=== PATIENT | female | born 1970 | race Caucasian/White ===

== ENCOUNTER 2016-03-26 08:17 | Outpatient (CLI) ==
[2014-05-20 09:14] VITALS: BMI 36.9
[2016-03-26 09:15] LABS: EOSINOPHILS # (AUTO) 0.3 K/ul (0.0-0.7); EOSINOPHILS % (AUTO) 6.3 % (0.0-7.0); HEMOGLOBIN 13.1 g/dl (12.0-16.0); IMMATURE GRANULOCYTE % (AUTO) 0.2 % (0.0-5.0); LYMPHOCYTES # (AUTO) 1.5 K/uL (0.60-3.4); LYMPHOCYTES % (AUTO) 36.7 (10.0-50.0); MEAN CORPUSCULAR HEMOGLOBIN 29.6 pg (27.0-31.0); MEAN CORPUSCULAR HGB CONC 33.6 (31.8-35.4); MEAN CORPUSCULAR VOLUME 88.2 fl (81.0-99.0); MONOCYTES # (AUTO) 0.3 K/uL (0.4-2.0); MONOCYTES % (AUTO) 8.2 (0-10); NEUTROPHILS % (AUTO) 47.6; PLATELET COUNT 239 10^3/uL (140-440); RED BLOOD COUNT 4.42 10^6/ul (4.20-5.40); WHITE BLOOD COUNT 4.14 K/ul (4.6-10.2)
[2016-03-26 10:00] LABS: ALBUMIN 3.6 g/dL (3.4-5.0); ALBUMIN/GLOBULIN RATIO 1.06; ANION GAP 9.8; BILIRUBIN,TOTAL 0.7 mg/dL (0.00-1.20); BUN/CREATININE RATIO 9.37; CALCIUM 9.4 mg/dL (8.2-10.2); CHOL/HDL RATIO 5.9 (4.5-5.5); CREATININE 0.96 mg/dL (0.60-1.30); POTASSIUM 3.8 mmol/L (3.5-5.10)
== END 2016-03-26 08:18 | disposition home or self-care (01) ==
LOC: LAB 08:17
PROVIDERS: ATTEND Nurse Practitioner Family
DX: E55.9 Vitamin D deficiency, unspecified (principal); E66.9 Obesity, unspecified; F41.9 Anxiety disorder, unspecified; R53.83 Other fatigue
CPT/HCPCS: 36415; 80053; 80061; 82306; 84439; 84443; 85025

== ENCOUNTER 2016-04-01 15:43 | Outpatient (CLI) ==
[2014-05-20 09:14] VITALS: BMI 36.9
== END 2016-04-01 15:44 | disposition home or self-care (01) ==
LOC: CAR 15:43
PROVIDERS: ATTEND Nurse Practitioner Family
DX: R53.83 Other fatigue (principal); E66.9 Obesity, unspecified
CPT/HCPCS: 95810

== ENCOUNTER 2016-08-20 11:55 | Outpatient (CLI) ==
[2014-05-20 09:14] VITALS: BMI 36.9
[2016-08-20 13:44] LABS: BASOPHILS % (AUTO) 0.6 % (0.0-3.0); EOSINOPHILS # (AUTO) 0.3 K/ul (0.0-0.7); EOSINOPHILS % (AUTO) 6.2 % (0.0-7.0); HEMATOCRIT 38.1 % (37.0-47.0); HEMOGLOBIN 12.5 g/dl (12.0-16.0); IMMATURE GRANULOCYTE % (AUTO) 0.2 % (0.0-5.0); LYMPHOCYTES # (AUTO) 1.6 K/uL (0.60-3.4); LYMPHOCYTES % (AUTO) 33.4 (10.0-50.0); MEAN CORPUSCULAR HEMOGLOBIN 28.9 pg (27.0-31.0); MEAN CORPUSCULAR HGB CONC 32.8 (31.8-35.4); MEAN CORPUSCULAR VOLUME 88.2 fl (81.0-99.0); MONOCYTES # (AUTO) 0.4 K/uL (0.4-2.0); MONOCYTES % (AUTO) 9.4 (0-10); NEUTROPHILS # (AUTO) 2.4 K/ul (2.0-6.9); NEUTROPHILS % (AUTO) 50.2; PLATELET COUNT 247 10^3/uL (140-440); RED BLOOD COUNT 4.32 10^6/ul (4.20-5.40)
[2016-08-20 13:45] LABS: BILIRUBIN,URINE Negative (NEGATIVE); KETONES,URINE Trace (NEGATIVE); LEUKOCYTE ESTERASE ,URINE Trace (NEGATIVE); NITRITE,URINE Negative (NEGATIVE); PH,URINE 5.5 (5-9); PROTEIN,URINE 2+ (NEGATIVE); URINE, BLOOD 2+ (NEGATIVE)
[2016-08-20 14:13] LABS: ADD URINE MICROSCOPIC YES; BACTERIA,URINE 3+ (NOT PRESENT)
[2016-08-20 14:23] LABS: ALBUMIN 3.5 g/dL (3.4-5.0); ALBUMIN/GLOBULIN RATIO 0.95; ANION GAP 11.9; BILIRUBIN,TOTAL 0.37 mg/dL (0.00-1.20); BUN/CREATININE RATIO 12.94; CALCIUM 9.4 mg/dL (8.2-10.2); CHOL/HDL RATIO 4.9 (4.5-5.5); CREATININE 0.85 mg/dL (0.60-1.30); POTASSIUM 3.9 mmol/L (3.5-5.10); TOTAL PROTEIN 7.2 g/dL (6.4-8.2)
--- NOTE | 2016-08-20 16:58 | DI ---
EXAM: Supine abdominal radiograph. HISTORY: Acute cystitis. Hematuria. COMPARISON: 11/10/2012. FINDINGS: A 1.6 cm calcified structure projects over the region of the left renal silhouette. No o ther calcifications are seen. Bowel gas pattern is nonobstructive. No acute osseous abnormality id entified. IMPRESSION: Large left renal calculus.
== END 2016-08-20 11:56 | disposition home or self-care (01) ==
LOC: LAB 11:55 → RAD 11:56
PROVIDERS: ATTEND Nurse Practitioner Family
DX: F41.9 Anxiety disorder, unspecified (principal); N30.01 Acute cystitis with hematuria; K21.9 Gastro-esophageal reflux disease without esophagitis
CPT/HCPCS: 36415; 80053; 80061; 81001; 84443; 85025; 87086

== ENCOUNTER 2016-08-30 08:06 | Outpatient (CLI) ==
[2014-05-20 09:14] VITALS: BMI 36.9
--- NOTE | 2016-08-30 08:41 | CT ---
EXAM: CT of the abdomen pelvis without contrast History: Calculus of kidney. Flank pain Comparison: Comparison: CT abdomen pelvis 12/30/2010 Technique: Multiplanar CT images through the abdomen pelvis were obtained without the administratio n of IV contrast Findings: The lung bases are clear. No acute osseous abnormalities. Mild to moderate degenerative disc disease at L5-S1. 1.5 cm calculus within the left renal pelvis causing minimal left hydronephrosis. There is mild inf lammation adjacent to the left renal pelvis. Additional 2 mm calculus seen within the inferior pole of the left kidney. No distal left ureteral calculi. No right renal calculi. No discrete gallston es identified by CT. No focal liver or splenic lesions. No peripancreatic inflammation. Adrenal g lands are unremarkable. No bowel obstruction. Colonic diverticulosis. Minimal inflammation seen a djacent to the sigmoid colon within the pelvis. Bladder is not well distended. No free air and no a scites. Impression: 1. Mild acute diverticulitis of the sigmoid colon. 2. Large calculus within the left renal pelvis causing minimal left hydronephrosis.
== END 2016-08-30 08:07 | disposition home or self-care (01) ==
LOC: RAD 08:06
PROVIDERS: ATTEND Nurse Practitioner Family
DX: N20.0 Calculus of kidney (principal)
CPT/HCPCS: 74176

== ENCOUNTER 2016-12-15 00:53 | Emergency (ER) | payer OTHER ==
[2016-12-15 00:57] VITALS: BP 151/84; TEMP 97.2; BMI 36.6
[2016-12-15] MEDS ORDERED: ZOFRAN 4 MG/2 ML IM STA (01:22)
[2016-12-15] MEDS ORDERED: DECADRON 4 MG/ML SDV IM STA (01:22)
[2016-12-15] MEDS ORDERED: ATIVAN IM STA (01:22)
--- NOTE | 2016-12-15 01:25 | ED.PDOC ---
General ED Provider: Dr. KRISTINA STEWART Chief Complaint: Dizziness Stated Complaint: Feeling dizzi for whole day, worse when trying to get up from sitting, also coughing, cold. Time Seen by Physician: 01:23 Mode of Arrival: Walk-In Information Source: Patient, Family Primary Care Provider: LESLI HERNANDEZ Nursing and Triage Documentation Reviewed and Agree: Yes Neurological Complaint Exam - Dizziness Complaint/Exam Onset: Gradual Symptoms Are: Still present Timing: Constant Episodes Lasting: Hours Initial Severity: Moderate Current Severity: Severe Character: Reports: Head spinning, Dizzy Aggravating: Reports: Position change, Supine to erect Alleviating: Reports: None Associated Signs and Symptoms: Reports: Nausea. Denies: Vomiting, Diaphoresis, Tinnitus, Chest pain, Short of air, Palpitations, Unsteady gait, GI blood loss, Visual changes, Decreased oral intake, Change in medication, Change in diet, OTC meds, Loss of balance Related History: Similar episode Cardiac Risk Factors: Reports: None CVA Risk Factors: Reports: None Related Surgical History: Reports: None JVD Present: No Carotid Bruit Present: No Rectal Heme Positive: No Nystagmus Present: No Gag Reflex Present: No Meningeal Signs Positive: No Focal Weakness: Present: None Focal Sensory Loss: Present: None Gait: Normal Romberg Test Positive: No Heel to Toe Normal: Yes [place]-Hallpike Test Positive: No Differential Diagnoses: Labyrinthitis, Meniere's Quality Indicators for Cardiac Chest Pain: EKG in 10min. Review of Systems - Review Of Systems Constitutional: Reports: Malaise, Weakness Eyes: Reports: No symptoms Ears, Nose, Mouth, Throat: Reports: No symptoms Respiratory: Reports: No symptoms Cardiac: Reports: No symptoms GI: Reports: No symptoms : Reports: No symptoms Musculoskeletal: Reports: No symptoms Skin: Reports: No symptoms Neurological: Reports: No symptoms Endocrine: Reports: No symptoms Hematologic/Lymphatic: Reports: No symptoms All Other Systems: Reviewed and Negative Past Medical History - Past Medical History Previously Healthy: Yes Endocrine: Reports: None Cardiovascular: Reports: None Respiratory: Reports: None Hematological: Reports: None Gastrointestinal: Reports: None Genitourinary: Reports: None Neuro/Psych: Reports: None Musculoskeletal: Reports: None Cancer: Reports: None Last Menstrual Period: LAST WEEK - Surgical History General Surgical History: Reports: None - Family History Family History: Reports: None - Social History Smoking Status: Never smoker Hx Substance Use: No Alcohol Screening: None - Immunizations Tetanus Shot up to Date: Yes Physical Exam - Physical Exam Appearance: Ill-appearing, Obese Ill-appearing: Moderate Eyes: EOMI, Conjunctiva clear ENT: Ears normal, Nose normal, Oropharynx normal Respiratory: Airway patent, Breath sounds clear, Breath sounds equal, Respirations nonlabored Cardiovascular: RRR, Pulses normal, No rub, No murmur GI/: Soft, Nontender, No masses, Bowel sounds normal, No Organomegaly Musculoskeletal: Normal strength, ROM intact, No edema, No calf tenderness Skin: Warm, Dry, Normal color Neurological: Sensation intact, Motor intact, Reflexes intact, Cranial nerves intact, Alert, Oriented Psychiatric: Affect appropriate, Mood appropriate Critical Care Note - Critical Care Note Total Time (mins): 30 Course - Course Orders, Labs, Meds: Orders Category Date Time Status CBC W/ AUTO DIFF Stat LAB 12/15/16 01:19 Ordered COMPREHENSIVE METABOLIC PANEL Stat LAB 12/15/16 01:21 Ordered SERUM Stat LAB 12/15/16 Ordered CHEST, 2 VIEWS PA & LAT Stat RADS 12/15/16 01:[address] HEAD W/O CONTRAST Stat RADS 12/15/16 01:21 Ordered Vital Signs: Temp Pulse Resp BP Pulse Ox 12/15/16 00:54 97.2 F L 84 22 151/84 H 98 Departure - Departure Time of Disposition: 03:00 Disposition: HOME SELF-CARE Discharge Problem: Dizziness Instructions: Dizziness (ED) Condition: Good Pt referred to PMD for follow-up: Yes Additional Instructions: Fall risk discussed rest Take medication with food. Prescriptions: Lorazepam [Ativan] 1 mg PO BID #20 tablet Ondansetron [Zofran Odt] 4 mg PO Q8H #20 tab.rapdis Prednisone 10 mg PO BIDWM #14 tablet Allergies/Adverse Reactions: Allergies ciprofloxacin [From Cipro] Adverse Reaction (Verified 02/11/14 21:12) ciprofloxacin HCl [From Cipro] Adverse Reaction (Verified 02/11/14 21:12) sulfamethoxazole [From Bactrim] Adverse Reaction (Verified 02/11/14 21:12) trimethoprim [From Bactrim] Adverse Reaction (Verified 02/11/14 21:12) Home Medications: Ambulatory Orders Vitamin B Complex 1 each PO d 03/24/16 Lorazepam [Ativan] 1 mg PO BID #20 tablet 12/15/16 Ondansetron [Zofran Odt] 4 mg PO Q8H #20 tab.rapdis 12/15/16 Prednisone 10 mg PO BIDWM #14 tablet 12/15/16 Disposition Discussed With: Patient, Family
[2016-12-15 01:32] LABS: BASOPHILS % (AUTO) 0.7 % (0.0-3.0); EOSINOPHILS # (AUTO) 0.3 K/ul (0.0-0.7); EOSINOPHILS % (AUTO) 5.2 % (0.0-7.0); HEMATOCRIT 36.7 % (37.0-47.0); HEMOGLOBIN 12.5 g/dl (12.0-16.0); IMMATURE GRANULOCYTE % (AUTO) 0.4 % (0.0-5.0); LYMPHOCYTES # (AUTO) 1.7 K/uL (0.60-3.4); LYMPHOCYTES % (AUTO) 30.8 (10.0-50.0); MEAN CORPUSCULAR HEMOGLOBIN 29.1 pg (27.0-31.0); MEAN CORPUSCULAR HGB CONC 34.1 (31.8-35.4); MEAN CORPUSCULAR VOLUME 85.3 fl (81.0-99.0); MONOCYTES # (AUTO) 0.5 K/uL (0.4-2.0); MONOCYTES % (AUTO) 9.6 (0-10); NEUTROPHILS # (AUTO) 2.9 K/ul (2.0-6.9); NEUTROPHILS % (AUTO) 53.3; PLATELET COUNT 175 10^3/uL (140-440); WHITE BLOOD COUNT 5.42 K/ul (4.6-10.2)
[2016-12-15 01:50] LABS: SERUM PREGNANCY INTERNAL QC INTERNAL QC VALID
[2016-12-15 01:51] LABS: ALBUMIN 3.3 g/dL (3.4-5.0); ALBUMIN/GLOBULIN RATIO 1.03; ANION GAP 13.5; BILIRUBIN,TOTAL 0.29 mg/dL (0.00-1.20); BUN/CREATININE RATIO 16.27; CALCIUM 8.9 mg/dL (8.2-10.2); CREATININE 0.86 mg/dL (0.60-1.30); POTASSIUM 3.5 mmol/L (3.5-5.10); TOTAL PROTEIN 6.5 g/dL (6.4-8.2)
--- NOTE | 2016-12-15 02:21 | CT ---
EXAM: CT head without contrast 12/15/2016. Sagittal and coronal reformatted images obtained HISTORY: Dizziness COMPARISON: None. FINDINGS: There is no evidence of intracranial hemorrhage. The midline is maintained. There is no h ydrocephalus. Chronic small vessel ischemic changes. No cerebellar tonsillar ectopia. Evaluation o f the calvarium shows no fracture. The mastoid air cells are normally pneumatized. IMPRESSION: No acute intracranial abnormality.
--- NOTE | 2016-12-15 02:33 | DI ---
EXAM: Chest, two views, 12/15/2016 HISTORY: Cough COMPARISON: 02/11/2014 FINDINGS / IMPRESSION: Cardiomediastinal countours appear stable. There is no focal pulmonary conso lidation. No pleural effusion or pneumothorax. No acute cardiopulmonary process.
== END 2016-12-15 02:41 | disposition home or self-care (01) ==
LOC: ED 00:53
DX: R42 Dizziness and giddiness (principal); R05 Cough; R53.1 Weakness
CPT/HCPCS: 36415; 80053; 84703; 85025; 93005; 93010; 96372; 99283

== ENCOUNTER 2017-04-21 08:38 | Emergency (ER) ==
[2017-04-21 08:45] VITALS: BP 147/85; TEMP 97.5; BMI 37.5
--- NOTE | 2017-04-21 11:30 | US ---
EXAM: Ultrasound bilateral carotid duplex. HISTORY: Dizziness. COMPARISON: None available. TECHNIQUE: Multiple nieves scale and color Doppler images were obtained. FINDINGS: Please note that estimates of internal carotid artery stenoses are based upon NASCET crite sigrid. Right carotid: No significant plaquing identified. Peak systolic velocity measurement in the right internal carotid artery is 1.3 meters per second. Right internal to common carotid artery peak systo lic velocity ratio measures 1.4. End diastolic velocity measurement in the right internal carotid ar alden is 0.3 meters per second. Flow in the right vertebral artery is antegrade. Left carotid: No significant plaquing identified. Peak systolic velocity measurement in the left in ternal carotid artery is 0.9 meters per second. Left internal to common carotid artery peak systolic velocity ratio measures 1.2. End diastolic velocity measurement in the left internal carotid artery measures 0.3 meters per second. Flow in the left vertebral artery is antegrade. IMPRESSION: 1. No 50% or greater stenosis in the right or left internal carotid artery. 2. Antegrade flow in both vertebral arteries.
--- NOTE | 2017-04-21 12:05 | ED.PDOC ---
General ED Provider: Dr. ANGELITO FISCHER Chief Complaint: Headache Stated Complaint: dizziness, headache Time Seen by Physician: 08:45 Mode of Arrival: Walk-In Information Source: Patient Exam Limitations: No limitations Primary Care Provider: LESLI HERNANDEZ Nursing and Triage Documentation Reviewed and Agree: Yes Reviewed sepsis parameters & appropriate labs ordered?: Yes System Inflammatory Response Syndrome: Not Applicable Sepsis Protocol: For patient's 13 years and over: Temp is 96.8 and below OR 101 and greater Pulse >90 BPM Resp >20/minute Acutely Altered Mental Status Are patient's symptoms suggestive of a new infection, such as: -Pneumonia -Skin, Soft Tissue -Endocarditis -UTI -Bone, Joint Infection -Implantable Device -Acute Abdominal Infection -Wound Infection -Meningitis -Blood Stream Catheter Infection -Unknown System Inflammatory Response Syndrome: Not Applicable Neurological Complaint Exam - Headache Complaint/Exam Onset: Gradual Duration: chronic worse during last few days Symptoms Are: Still present Timing: Intermittent Episodes Lasting: Hours Worst Headache Ever: No Initial Severity: Moderate Current Severity: Moderate Location: Frontal, Temporal Character: Reports: Dull Aggravating: Reports: None Alleviating: Reports: None Associated Signs and Symptoms: Reports: Dizziness. Denies: Seizure, Nausea, Vomiting, Sinus pressure, Fever, Neck pain, Neck stiffness, Decreased LOC, Visual changes Related History: Reports: Similar episode Related Surgical History: Reports: None SAH Risk Factors: Reports: None Meningitis Risk Factors: Reports: None SDH Risk Factors: Reports: None Temporal Arteritis Risk Factors: Reports: Female Normal Head CT Within Last 12 Months: No Fundoscopic Exam: Present: Normal Findings Papilledema Present: No Temporal Artery Tenderness: Present: None Sinus Tenderness: Present: None TMJ Tenderness: Present: None Glascow Coma Scale (see protocol): 15 Meningeal Signs Positive: No Pain on Passive Flexion-Positive Kernig's: No ROM Limited In: No Limitiations Focal Weakness: Present: None Focal Sensory Loss: Present: None Gait: Normal Nystagmus Present: No Gag Reflex Present: No Differential Diagnoses: Migraine Review of Systems - Review Of Systems Constitutional: Reports: No symptoms Eyes: Reports: No symptoms Ears, Nose, Mouth, Throat: Reports: No symptoms Respiratory: Reports: No symptoms Cardiac: Reports: No symptoms GI: Reports: No symptoms : Reports: No symptoms Musculoskeletal: Reports: No symptoms Skin: Reports: No symptoms Neurological: Reports: Headache, Other (postional vertigo) Endocrine: Reports: No symptoms Hematologic/Lymphatic: Reports: No symptoms All Other Systems: Reviewed and Negative Past Medical History - Past Medical History Previously Healthy: Yes Endocrine: Reports: None Cardiovascular: Reports: None Respiratory: Reports: None Hematological: Reports: None Gastrointestinal: Reports: None Genitourinary: Reports: None Neuro/Psych: Reports: None Musculoskeletal: Reports: None Cancer: Reports: None Last Menstrual Period: now - Surgical History General Surgical History: Reports: None - Family History Family History: Reports: None - Social History Smoking Status: Never smoker Hx Substance Use: No Alcohol Screening: None Physical Exam - Physical Exam Appearance: Well-appearing, No pain distress, Well-nourished Eyes: SHANITA, EOMI, Conjunctiva clear ENT: Ears normal, Nose normal, Oropharynx normal Respiratory: Airway patent, Breath sounds clear, Breath sounds equal, Respirations nonlabored Cardiovascular: RRR, Pulses normal, No rub, No murmur GI/: Soft, Nontender, No masses, Bowel sounds normal, No Organomegaly Musculoskeletal: Normal strength, ROM intact, No edema, No calf tenderness Skin: Warm, Dry, Normal color Neurological: Sensation intact, Motor intact, Reflexes intact, Cranial nerves intact, Alert, Oriented Psychiatric: Affect appropriate, Mood appropriate Interpretation - Radiology Interpretation Radiology Interpretation By: Radiologist Radiology Results: No acute changes - 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 Rate: Normal Rhythm: Sinus - EKG Interpretation Rate: Normal Rhythm: Sinus Critical Care Note - Critical Care Note Total Time (mins): 0 Course - Course Hematology/Chemistry: 04/21/17 09:20 04/21/17 09:20 Orders, Labs, Meds: Lab Review 04/21/17 04/21/17 09:20 09:20 WBC 5.93 RBC 4.30 Hgb 12.8 Hct 36.9 L MCV 85.8 MCH 29.8 MCHC 34.7 RDW Coeff of Christian 12.6 Plt Count 208 Immature Gran % (Auto) 0.2 Neut % (Auto) 65.8 Lymph % (Auto) 21.4 Gaston % (Auto) 7.9 Eos % (Auto) 3.9 Baso % (Auto) 0.8 Immature Gran # (Auto) 0.0 Neut # (Auto) 3.9 Lymph # (Auto) 1.3 Gaston # (Auto) 0.5 Eos # (Auto) 0.2 Baso # (Auto) 0.1 Sodium 138 Potassium 4.1 Chloride 106 Carbon Dioxide 23 Anion Gap 13.1 BUN 10 Creatinine 0.82 Estimated GFR (MDRD) 76.00 BUN/Creatinine Ratio 12.19 Glucose 112 H Calcium 8.8 Total Bilirubin 0.4 AST 14 L ALT 14 Alkaline Phosphatase 77 Total Protein 6.9 Albumin 3.3 L Globulin 3.6 Albumin/Globulin Ratio 0.92 Orders Category Date Time Status EKG-(ED ONLY) Stat CARDIO 04/21/17 09:36 Completed NPO REMINDER: IMAGING ONCE CARE 04/21/17 09:34 Completed ED IV/MEDIPORT/POWERPORT .ONCE EMERGENCY 04/21/17 09:36 Active CBC W/ AUTO DIFF Stat LAB 04/21/17 09:20 Completed COMPREHENSIVE METABOLIC PANEL Stat LAB 04/21/17 09:20 Completed 0.9 % Sodium Chloride [Saline Flush] MEDS 04/21/17 09:36 Active 1 syr IVF PRN PRN CTA ANGIO HEAD Stat RADS 04/21/17 09:34 Taken ULTRASOUND DOPPLER CAROTID [U/S DOPPLER CAROTID] Stat RADS 04/21/17 09:35 Completed Medications Generic Name Dose Route Start Last Admin Trade Name Freq PRN Reason Stop Dose Admin Sodium Chloride 1 syr 04/21/17 09:36 Saline Flush IVF PRN PRN To flush IV Vital Signs: Temp Pulse Resp BP Pulse Ox 04/21/17 08:39 97.5 F L 79 16 147/85 H 98 Departure - Departure Time of Disposition: 13:00 Disposition: HOME SELF-CARE Discharge Problem: Headache, Dizzinesses Instructions: Vertigo (ED), Vertigo (DC), Dizziness (ED), Lightheadedness (ED) , Acute Headache (ED) Condition: Good Pt referred to PMD for follow-up: Yes IPMP verified?: No Additional Instructions: Please call your Family Physician as soon as possible to schedule a follow-up appointment. Prescriptions: Amoxicillin 500 mg PO Q8HR #21 tablet Allergies/Adverse Reactions: Allergies ciprofloxacin [From Cipro] Adverse Reaction (Verified 04/21/17 08:45) ciprofloxacin HCl [From Cipro] Adverse Reaction (Verified 04/21/17 08:45) sulfamethoxazole [From Bactrim] Adverse Reaction (Verified 04/21/17 08:45) trimethoprim [From Bactrim] Adverse Reaction (Verified 04/21/17 08:45) Home Medications: Ambulatory Orders Cholecalciferol (Vitamin D3) [Vitamin D3] 50,000 unit PO WEEKLY 03/10/17 Gypsy-3 Fatty Acids/Fish Oil [Fish Oil 1,000 Mg Capsule] 1 each PO DAILY Amoxicillin 500 mg PO Q8HR #21 tablet 04/21/17 Disposition Discussed With: Patient
--- NOTE | 2017-04-21 12:06 | CT ---
EXAM: CT angiogram of the [place] with contrast TECHNIQUE: Helical axial CT angiogram of the [place] was performed with contrast with coron al and sagittal and multiplanar reconstructions as well as separate work station 3-D renderings. COMPARISON: CT head from 12/15/2016 HISTORY: Headache and dizziness FINDINGS: Right internal carotid artery distribution: The right internal carotid artery, middle cerebral artery including the M1, M2, A1, A2 and runoff branches are widely patent. Left internal carotid artery distribution: The left internal carotid artery, middle cerebral artery i ncluding the M1, M2, A1, A2 and runoff branches are widely patent. Anterior communicating artery: Patent Posterior communicating arteries: Patent bilaterally Vertebral basilar system: The V4 segments of the vertebral arteries and the basilar artery and its br anches are widely patent. The vertebral arteries are codominant. The visualized portions of the cervical vascular anatomy appear unremarkable. The bilateral carotid bifurcations are widely patent. There are no aneurysms or vascular malformations. The dural sinuses are widely patent. CT head was performed without contrast as part of the examination. There is no acute intracranial abnormality. There is no hemorrhage or mass or subdural or hydrocepha jalen. There is no prior or evolving cortical ischemia. Brain parenchyma ventricles and sulci are othe rwise normal. The bilateral orbits are unremarkable. There is no significant mastoid air cell fluid.T he paranasal sinuses demonstrate trace membrane thickening but no air-fluid levels. There are no acu te calvarial abnormalities. IMPRESSION: Normal [place] CT angiogram.
== END 2017-04-21 12:15 | disposition home or self-care (01) ==
LOC: ED 08:38
DX: R51 Headache (principal); R42 Dizziness and giddiness
CPT/HCPCS: 36415; 80053; 85025; 93005; 93010; 99284

== ENCOUNTER 2017-04-25 07:59 | Outpatient (CLI) ==
--- NOTE | 2017-04-25 08:47 | DI ---
EXAM: Eight views of the cervical spine including flexion and extension HISTORY: Neck pain. COMPARISON: None FINDINGS: There is no acute compression fracture or subluxation. There is a normal appearing facets and posterior processes. There is minimal straightening. The odontoid process is unremarkable. The facets are normal with patent neural foramen. There is no change in alignment during flexion or ext ension. IMPRESSION: No acute abnormality or compression fracture of the cervical spine with no change in alignment durin g flexion or extension. Mild straightening of the cervical spine is present and may represent positioning versus muscle spasm .
== END 2017-04-25 08:00 | disposition home or self-care (01) ==
LOC: RAD 07:59
PROVIDERS: ATTEND Nurse Practitioner Family
DX: M54.2 Cervicalgia (principal)

== ENCOUNTER 2017-05-16 12:13 | Outpatient (CLI) | END 2017-05-16 12:14 | disposition home or self-care (01) | LOC: FCC-LAB 12:13 | PROVIDERS: ATTEND Nurse Practitioner Family | DX: R53.83 Other fatigue (principal); R63.5 Abnormal weight gain | CPT/HCPCS: 36415; 82306; 84439; 84443 ==

== ENCOUNTER 2017-06-19 05:53 | Observation (INO) | payer MEDICAID, OTHER ==
--- NOTE | 2017-06-19 06:45 | ED.PDOC ---
General Stated Complaint: Patient is a 46 year old female who comse to the ER with increased frequency voiding of small amounts. Has chronic Pelvic pain/lower back not any different today but increased suprapubic pain and Low grade fever and chills. Has a history of Diverticulitis. Time Seen by Physician: 06:30 Mode of Arrival: Walk-In Information Source: Patient Exam Limitations: No limitations Nursing and Triage Documentation Reviewed and Agree: Yes Reviewed sepsis parameters & appropriate labs ordered?: No System Inflammatory Response Syndrome: Not Applicable System Inflammatory Response Syndrome: Not Applicable <SAY KENNY - Last Filed: 06/19/17 06:49> <GIGI GAXIOLA - Last Filed: 06/19/17 07:34> ED Provider: Dr. GIGI PAUL-LARRY Chief Complaint: Abdominal Pain Primary Care Provider: LESLI HERNANDEZ Sepsis Protocol: For patient's 13 years and over: Temp is 96.8 and below OR 101 and greater Pulse >90 BPM Resp >20/minute Acutely Altered Mental Status Are patient's symptoms suggestive of a new infection, such as: -Pneumonia -Skin, Soft Tissue -Endocarditis -UTI -Bone, Joint Infection -Implantable Device -Acute Abdominal Infection -Wound Infection -Meningitis -Blood Stream Catheter Infection -Unknown Complaint Exam - Complaint/Exam Patient Complains of: Reports: Dysuria Onset/Duration: 1 day Symptoms Are: Still present Timing: Constant Initial Severity: Moderate Current Severity: Moderate Location of Pain: Reports: Suprapubic Character: Reports: Dull Aggravating: Reports: Urination Associated Signs and Symptoms: Reports: Back pain, Fever Ovarian Torsion Risk Factors: Reports: None Abdominal Findings: Absent: Pulsatile mass, Abdominal distention, Unequal femoral pulses, Rebound tenderness (but suprapubic tenderness to palpation.) Differential Diagnoses: Ovarian Cyst, Ureteral Stone, UTI, Other ( Diverticulitis ) <SAY KENNY - Last Filed: 06/19/17 06:49> Review of Systems - Review Of Systems Constitutional: Reports: Chills, Fever Respiratory: Reports: No symptoms Cardiac: Reports: No symptoms GI: Reports: Abdominal pain, Nausea, Poor appetite Musculoskeletal: Reports: Back pain (chronic) Skin: Reports: No symptoms Neurological: Reports: Anxiety Hematologic/Lymphatic: Reports: No symptoms All Other Systems: Reviewed and Negative <SAY KENNY Last Filed: 06/19/17 06:49> Past Medical History - Past Medical History Previously Healthy: Yes Endocrine: Reports: None Cardiovascular: Reports: None Respiratory: Reports: None Hematological: Reports: None Gastrointestinal: Reports: Diverticulitis Genitourinary: Reports: Kidney stones Neuro/Psych: Reports: Anxiety Musculoskeletal: Reports: None Cancer: Reports: None Last Menstrual Period: last week Other Pertinent Past Medical History: HPV,Dizziness. - Surgical History General Surgical History: Reports: Other (LEAP, Ureteral Lithotripsy.) - Family History Family History: Reports: None - Social History Smoking Status: Never smoker Hx Substance Use: No Alcohol Screening: None - Immunizations Tetanus Shot up to Date: Yes <SAY KENNY Last Filed: 06/19/17 06:49> Physical Exam - Physical Exam Appearance: Ill-appearing, Obese Ill-appearing: Moderate Pain Distress: Moderate Neck: Supple Respiratory: Airway patent, Breath sounds clear, Breath sounds equal, Respirations nonlabored Cardiovascular: RRR, Pulses normal, No rub, No murmur GI/: Soft, Bowel sounds normal, No Organomegaly, Tender (Suprapubic area ) Musculoskeletal: Normal strength, ROM intact, No edema, No calf tenderness Skin: Warm, Dry Neurological: Sensation intact, Motor intact, Reflexes intact, Cranial nerves intact, Alert, Oriented Psychiatric: Anxious <SAY KENNY Last Filed: 06/19/17 06:49> Interpretation - Radiology Interpretation Radiology Interpretation By: Radiologist Radiology Results: Positive Exam Interpreted: CT Scan <GIGI GAXIOLA - Last Filed: 06/19/17 07:34> Physician Notification - Case Discussed Endorsed To/Discussed With: Dr Paul Time of Discussion: 07:00 <SAY KENNY Last Filed: 06/19/17 06:49> - Case Discussed Physician Notified: dr [email or web address] Time of Notification: 07:33 <GIGI GAXIOLA - Last Filed: 06/19/17 07:34> Critical Care Note - Critical Care Note Total Time (mins): 0 <SAY KENNY - Last Filed: 06/19/17 06:49> Course - Course Hematology/Chemistry: 06/19/17 06:50 06/19/17 06:50 <GIGI GAXIOLA - Last Filed: 06/19/17 07:34> - Course Orders, Labs, Meds: Lab Review 06/19/17 06/19/17 06/19/17 06:10 06:50 06:50 WBC 9.17 RBC 4.18 L Hgb 12.3 Hct 36.1 L MCV 86.4 MCH 29.4 MCHC 34.1 RDW Coeff of Christian 13.0 Plt Count 218 Immature Gran % (Auto) 0.2 Neut % (Auto) 72.4 Lymph % (Auto) 15.7 [place] % (Auto) 9.8 Eos % (Auto) 1.5 Baso % (Auto) 0.4 Immature Gran # (Auto) 0.0 Neut # (Auto) 6.6 Lymph # (Auto) 1.4 [place] # (Auto) 0.9 Eos # (Auto) 0.1 Baso # (Auto) 0.0 Sodium 137 Potassium 3.8 Chloride 104 Carbon Dioxide 23 Anion Gap 13.8 BUN 10 Creatinine 0.88 Estimated GFR (MDRD) 70.00 BUN/Creatinine Ratio 11.36 Glucose 124 H Calcium 9.2 Total Bilirubin 0.9 AST 16 ALT 16 Alkaline Phosphatase 70 Total Protein 7.0 Albumin 3.3 L Globulin 3.7 Albumin/Globulin Ratio 0.89 Amylase 63 Lipase 26 Urine Color Yellow Urine Clarity Clear Urine pH 6.0 Ur Specific [place] 1.015 Urine Protein Negative Urine Glucose (UA) Negative Urine Ketones Negative Urine Blood 1+ Urine Nitrite Negative Urine Bilirubin Negative Urine Urobilinogen 0.2 Ur Leukocyte Esterase Negative Urine Microscopic RBC 2-5 Urine Microscopic WBC 2-5 Ur Squamous Epith Cells 10-20 Urine Bacteria 1+ Orders Category Date Time Status NPO REMINDER: IMAGING ONCE CARE 06/19/17 06:47 Completed AMYLASE Stat LAB 06/19/17 06:50 Completed CBC W/ AUTO DIFF Stat LAB 06/19/17 06:50 Completed COMPREHENSIVE METABOLIC PANEL Stat LAB 06/19/17 06:50 Completed LIPASE Stat LAB 06/19/17 06:50 Completed UA [URINALYSIS C & S IF INDICATED] Stat LAB 06/19/17 06:10 Completed URINE CULTURE Stat LAB 06/19/17 06:[address] ABD/PEL WO RENAL STONE PROT Stat RADS 06/19/17 06:53 Completed Vital Signs: Temp Pulse Resp BP Pulse Ox 06/19/17 05:54 98.8 F 88 22 129/84 97 Departure <SAY KENNY - Last Filed: 06/19/17 06:49> - Departure Time of Disposition: 07:33 Pt referred to PMD for follow-up: Yes IPMP verified?: No Disposition Discussed With: Patient <GIGI GAXIOLA - Last Filed: 06/19/17 07:34> - Departure Disposition: ADMITTED INPATIENT Discharge Problem: Diverticulitis Condition: Good Allergies/Adverse Reactions: Allergies ciprofloxacin [From Cipro] Adverse Reaction (Verified 06/19/17 06:05) ciprofloxacin HCl [From Cipro] Adverse Reaction (Verified 06/19/17 06:05) sulfamethoxazole [From Bactrim] Adverse Reaction (Verified 06/19/17 06:05) trimethoprim [From Bactrim] Adverse Reaction (Verified 06/19/17 06:05) Home Medications: Ambulatory Orders Cholecalciferol (Vitamin D3) [Vitamin D3] 50,000 unit PO WEEKLY 03/10/17 [place]-3 Fatty Acids/Fish Oil [Fish Oil 1,000 Mg Capsule] 1 each PO DAILY
--- NOTE | 2017-06-19 07:18 | CT ---
EXAM: CT of the abdomen pelvis without contrast History: Suprapubic abdominal pain. Comparison: CT abdomen pelvis 08/30/2016 Technique: Multiplanar CT images through the abdomen pelvis were obtained without the administration of IV contrast Findings: Lung bases are free of consolidation. No acute osseous abnormalities. Moderate degenerat barney disc disease at L5-S1. No discrete gallstones identified by CT. No focal liver or splenic lesions. No peripancreatic infla mmation. Adrenal glands are unremarkable. Left renal calculi with the largest measuring 4 mm. No u reteral stones and no hydronephrosis. No bowel obstruction. Colonic diverticulosis. Wall thickenin g and surrounding inflammation of the sigmoid colon within the pelvis. No abscess. No bladder wall thickening. No free intraperitoneal air. Adnexal structures appear appropriate for patient's age. Impression: 1. Acute uncomplicated diverticulitis of the sigmoid colon. There is no abscess. 2. Nonobstructing left nephrolithiasis
[2017-06-19] MEDS ORDERED: MORPHINE 4 MG/ML SYRINGE IVP PRN (07:38)
[2017-06-19] MEDS ORDERED: ZOFRAN 4 MG/2 ML IVP PRN (07:38)
[2017-06-19 09:22] VITALS: BMI 38.2
[2017-06-19] MEDS: FLAGYL 500 MG/100 ML 500 MG in PREMIX 100 ML NS 1 BAG IV SCH ×3 (09:23→20:24)
[2017-06-19] MEDS: D5%-NS-KCL 20 MEQ/L IV SOL 1,000 ML IV SCH ×2 (09:23→21:26)
[2017-06-19] MEDS ORDERED: TYLENOL PO STA (09:33)
[2017-06-19] MEDS ORDERED: TYLENOL ONE (09:35)
[2017-06-19] MEDS: ZOSYN 3.375 GM 3.375 GM in SODIUM CHLORIDE 50 ML IV SCH ×3 (12:29→23:26)
[2017-06-19] MEDS ORDERED: TYLENOL PO PRN (17:06)
[2017-06-20] MEDS: FLAGYL 500 MG/100 ML 500 MG in PREMIX 100 ML NS 1 BAG IV SCH ×3 (04:16→20:08)
[2017-06-20] MEDS: ZOSYN 3.375 GM 3.375 GM in SODIUM CHLORIDE 50 ML IV SCH ×4 (05:58→23:27)
[2017-06-20] MEDS: D5%-NS-KCL 20 MEQ/L IV SOL 1,000 ML IV SCH ×3 (07:29→21:52)
[2017-06-21] MEDS: FLAGYL 500 MG/100 ML 500 MG in PREMIX 100 ML NS 1 BAG IV SCH (05:15)
[2017-06-21 06:26] VITALS: BP 138/83; TEMP 98.3
[2017-06-21] MEDS: ZOSYN 3.375 GM 3.375 GM in SODIUM CHLORIDE 50 ML IV SCH (06:28)
[2017-06-21] MEDS: D5%-NS-KCL 20 MEQ/L IV SOL 1,000 ML IV SCH ×2 (08:48→10:36)
--- NOTE | 2017-06-21 14:43 | PN ---
DATE OF SERVICE: 06/20/17 SUBJECTIVE: The patient was admitted with the sigmoid diverticulitis and passing gas. Up and about walking. Able to tolerate the clear liquid diet. Still has some sharp abdominal pain but no lower back pain. Lower back pain been resolved. REVIEW OF SYSTEMS: CONSTITUTIONAL: No fever, no chills. HEENT: Normal. ENDOCRINE: No weight gain, no weight loss. CVS: No angina symptoms. No CHF symptoms. No palpitations. No atypical chest pain for CAD. No shortness of breath. No PND, no orthopnea. RESPIRATORY: No cough, no hemoptysis. GI: No nausea, no vomiting. No abdominal pain. : No hematuria. No polyuria. MUSCULOSKELETAL: No joint swelling. PSYCHIATRIC: Not anxious. No depression. No suicidal thoughts. No homicidal thoughts. SKIN: Intact. No rash. PHYSICAL EXAMINATION: V/S: Blood pressure 119/76, respiratory rate 20, heart rate 76, temperature 98.6. HEENT: Normocephalic, atraumatic. Mucosa dry. NECK: Supple. No JVD, no carotid bruit. No lymphadenopathy. LUNGS: Clear to auscultation. No rales or rhonchi. HEART: S1, S2 normal. No S3. No murmur, gallop or regurgitation. ABDOMEN: Suprapubic discomfort present. Bowel sounds hyperactive. No rigidity. No rebound or guarding. No CVA tenderness. EXTREMITIES: No pedal edema. No clubbing or cyanosis MUSCULOSKELETAL: No joint swelling. NEUROLOGIC: Awake, alert, oriented times three. No focal deficit. LYMPHATIC: No lymph nodes palpable. SKIN: Intact. LABS: Sodium 139, potassium 3.8, chloride 109, bicarb 22, BUN 6, creatinine 0.80, glucose 136, WBC 6.40, hgb 11.4, hct 33.3 and plt count 203. ASSESSMENT: 1. Sigmoid diverticulitis 2. Hyperglycemia 3. Anxiety 4. Depression PLAN: 1. Continue Flagyl 2. Zosyn 3. Demerol 4. Soft diet Will follow the patient in daily rounds. TIME SPENT: More than 35 minutes MTDD
--- NOTE | 2017-06-28 13:25 | HP ---
DATE OF SERVICE: 06/19/17 CHIEF COMPLAINT: Abdominal wall pain, lower belly pain. HISTORY OF PRESENT ILLNESS: This is a 46 year old female who has been having lower abdominal pain, nausea, voiding frequently-small amounts, pelvic pain, lower back pain, low grade fever at home and chills. No nausea, vomiting or diarrhea now. She came to see Dr. Arellano in the emergency room initially and then Dr. Pham. Urine showed blood positive and bacteria positive. Nitrites negative. CT of the abdomen and pelvis showed the sigmoid diverticulitis without any complications. At that time the patient is admitted to the hospital for the IV antibiotics and bowel rest and IV fluids. REVIEW OF SYSTEMS: CONSTITUTIONAL: No fever, no chills. HEENT: Normal. Also headache right now as the patient has not been eating, so she is having headache. ENDOCRINE: No weight gain; no weight loss. CVS: No chest pain. No PND, no orthopnea. No shortness of breath. No PND, no orthopnea. RESPIRATORY: No cough, no congestion. No hemoptysis. GI: Some nausea, no vomiting. Lower abdominal pain. No melena. : Frequency of urination. Urgency of urination. Small scanty urine. MUSCULOSKELETAL: No joint swelling. PSYCHIATRIC: Not anxious. No depression. No suicidal thoughts. No homicidal thoughts. SKIN: Intact, no open lesions. PAST MEDICAL HISTORY: History of pneumonia GERD History of kidney stones Osteoarthritis Anxiety PAST SURGICAL HISTORY: LEAP procedure PERSONAL HISTORY: Does not smoke or drink. FAMILY HISTORY:Significant for diabetes and heart problems. MEDICATIONS: Zantac, Xanax, Fish oil, Cyclobenzaprine and Phenergan. ALLERGIES: Ciprofloxacin, Bactrim PHYSICAL EXAMINATION: V/S: Blood pressure 129/84, respiratory rate 22, heart rate 88, temperature 98.0 , saturation 97. HEENT: Atraumatic, normocephalic. No scleral icterus. Pallor positive. Mucosa dry. NECK: Supple. No JVD, no bruit. No lymphadenopathy. No thyromegaly. HEART: S1, S2 normal. No murmur. No cyanosis or clubbing. No ascites. LUNGS: Decreased and clear. No rales or rhonchi. ABDOMEN: Suprapubic discomfort. Bowel sounds are active. No CVA tenderness. No rigidity or guarding. EXTREMITIES: No pedal edema. No cyanosis or clubbing MUSCULOSKELETAL: Normal joints, no swelling. NEUROLOGIC: Normal. SKIN: Intact; no open lesions. LYMPHATIC: No lymph nodes palpable. LABS: White count 9.17, hemoglobin 12.3, hematocrit 36.0, platelet count 218, sodium 137, potassium 3.8, chloride 104, bicarb 23, BUN 10, creatinine 0.82, glucose 124. ASSESSMENT: 1. SIGMOID DIVERTICULITIS 2. HISTORY OF ANXIETY 3. GERD 4. HYPERGLYCEMIA PLAN: 1. Admit the patient to the regular floor. 2. CBC, CMP today and daily. 3. Clear liquid diet. 4. NPO for now. 5. Flagyl every 8 hours. 6. Zosyn every 6 hours. 7. Zofran. 8. Morphine 2 mg every 12 hours prn for the abdominal pain. 9. Tylenol prn. TIME SPENT: MORE THAN 75 minutes for the admission. MTDD
--- NOTE | 2017-08-18 11:31 | DS ---
DATE OF SERVICE: 06/21/17 FINAL DIAGNOSIS: 1. ACUTE DIVERTICULITIS, SIGMOID 2. ANXIETY 3. DJD, L5-S1 4. LEFT NEPHROLITHIASIS, NONOBSTRUCTING 5. LEEP PROCEDURE DISCHARGE INSTRUCTIONS: 1. Discharge the patient home. 2. Diverticular diet discussed with the patient, no seeds, no nuts. 3. Increase hydration. 4. Followup in the office within 5 to 7 days. 5. Appointment with GI doctor, Dr. Arredondo on 07/08/17. 6. Please start taking yogurt as the patient will be getting IV antibiotics. 7. Continue oral antibiotics. MEDICATIONS AT DISCHARGE: Xanax Flexeril Zantac Carafate [place] 3 NEW PRESCRIPTIONS: Augmentin 500 mg q.8hr DIET INSTRUCTIONS: Soft diet until she is seen in the office. ACTIVITY: Resume as tolerated DISEASE SPECIFIC EDUCATION: Diverticulitis, risk of abscess discussed, verbalized understanding. 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 She has been having menstrual cramps, came to the emergency room and was seen by the ER physician. White count is normal. Urine showed 1+ blood, nitrites negative. CT of abdomen and pelvis showed acute sigmoid diverticulitis. At that time, the patient was admitted to the hospital, started on IV antibiotics, Flagyl and Zosyn. IV fluids were given. Tylenol for pain. Zofran was given. Morphine for pain was given. Labs have been steady. Hemoglobin slightly dropped from 12.3 to 11.9. BUN and creatinine were normal. Within one to two days, the patient was up and about, pain better. She started passing gas, started on clear liquids and soft diet, tolerated well, did not have any problem. At that time, the patient was discharged home. TIME SPENT: MORE THAN 65 MINUTES MTDD
== END 2017-06-21 10:35 | disposition home or self-care (01) ==
LOC: ED 05:53 → MEDSURG A 07:41 → INTOOBSV 07:41
PROVIDERS: ADMIT Emergency Medicine; ATTEND Emergency Medicine
DX: R11.0 Nausea (principal); K57.30 Diverticulosis of large intestine without perforation or abscess without bleeding; K21.9 Gastro-esophageal reflux disease without esophagitis; N20.0 Calculus of kidney; R73.9 Hyperglycemia, unspecified; F41.8 Other specified anxiety disorders
CPT/HCPCS: 36415; 74176; 80053; 81001; 82150; 83690; 85025; 87086; 96361; 96365; 96366; 96367; 99223; 99233; 99239; 99284

== ENCOUNTER 2017-07-08 22:55 | Inpatient (IN) | payer MEDICAID, OTHER ==
[2017-07-08 23:05] VITALS: BMI 38.7
--- NOTE | 2017-07-09 01:08 | CT ---
EXAM: CT of the abdomen and pelvis without contrast. HISTORY: Left lower quadrant abdominal pain. PROCEDURE: Contiguous axial CT images of the abdomen and pelvis without contrast with coronal and sa gittal reformats. FINDINGS: The liver, gallbladder, pancreas, spleen, adrenal glands and right kidney are normal in [place]. There are multiple nonobstructive calcifications in the left kidney measuring up to 5 mm. Th e appendix is normal in appearance. There is diverticulosis of the colon. There is inflammatory str anding along the margin of the proximal sigmoid colon consistent with diverticulitis. No free fluid o r free air in the abdomen or pelvis. The bladder is minimally filled which limits the evaluation. Th e uterus is unremarkable. There are degenerative changes in the spine. Impression: Diverticulitis of the sigmoid colon as described. Nonobstructive left nephrolithiasis as described.
--- NOTE | 2017-07-09 01:38 | ED.PDOC ---
General ED Provider: Dr. GIGI PAUL-ER Chief Complaint: Abdominal Pain Stated Complaint: i am hurting Time Seen by Physician: 01:36 Mode of Arrival: Walk-In Information Source: Patient Exam Limitations: No limitations Primary Care Provider: LESLI HERNANDEZ Nursing and Triage Documentation Reviewed and Agree: Yes Reviewed sepsis parameters & appropriate labs ordered?: Yes System Inflammatory Response Syndrome: Not Applicable Sepsis Protocol: For patient's 13 years and over: Temp is 96.8 and below OR 101 and greater Pulse >90 BPM Resp >20/minute Acutely Altered Mental Status Are patient's symptoms suggestive of a new infection, such as: -Pneumonia -Skin, Soft Tissue -Endocarditis -UTI -Bone, Joint Infection -Implantable Device -Acute Abdominal Infection -Wound Infection -Meningitis -Blood Stream Catheter Infection -Unknown GI Complaint Exam - Abdominal Pain Complaint/Exam Onset: Gradual Duration: several days Symptoms Are: Still present Initial Severity: Mild Current Severity: Moderate Location of Pain: Discrete, LLQ Radiates To: Reports: LLQ Character: Reports: Dull, Aching, Cramping Aggravating: Reports: None Alleviating: Reports: None Associated Signs and Symptoms: Denies: Diaphoresis, Fever, Cough, Chest pain, Dizziness, Back pain, Constipation, Blood in stool, Dysuria, Urinary frequency, Decreased urine output, Decreased appetite, Vaginal bleeding, Vaginal discharge , Nausea, Vomiting, Diarrhea, Sore throat, Decreased activity Patient Rh Status: Unknown Abdominal Findings: Present: None Differential Diagnoses: Constipation, Diverticulitis Review of Systems - Review Of Systems Constitutional: Reports: No symptoms Eyes: Reports: No symptoms Ears, Nose, Mouth, Throat: Reports: No symptoms Respiratory: Reports: No symptoms Cardiac: Reports: No symptoms GI: Reports: Abdominal pain : Reports: No symptoms Musculoskeletal: Reports: No symptoms Skin: Reports: No symptoms Neurological: Reports: No symptoms Endocrine: Reports: No symptoms Hematologic/Lymphatic: Reports: No symptoms All Other Systems: Reviewed and Negative Past Medical History - Past Medical History Previously Healthy: Yes Endocrine: Reports: None Cardiovascular: Reports: None Respiratory: Reports: None Hematological: Reports: None Gastrointestinal: Reports: Diverticulitis Genitourinary: Reports: Kidney stones Neuro/Psych: Reports: Anxiety Musculoskeletal: Reports: None Cancer: Reports: None Last Menstrual Period: 1 month ago Other Pertinent Past Medical History: HPV,Dizziness. - Surgical History General Surgical History: Reports: Other (LEAP, Ureteral Lithotripsy.) - Family History Family History: Reports: None - Social History Smoking Status: Former smoker Hx Substance Use: No Alcohol Screening: None - Immunizations Tetanus Shot up to Date: Yes Physical Exam - Physical Exam Appearance: Well-appearing, No pain distress, Well-nourished Pain Distress: Mild Eyes: SHANITA, EOMI, Conjunctiva clear ENT: Ears normal, Nose normal, Oropharynx normal Neck: Supple Respiratory: Airway patent, Breath sounds clear, Breath sounds equal, Respirations nonlabored Cardiovascular: RRR, Pulses normal, No rub, No murmur GI/: Soft, No masses, Bowel sounds normal, No Organomegaly, Tender Musculoskeletal: Normal strength, ROM intact, No edema, No calf tenderness Skin: Warm, Dry, Normal color Neurological: Sensation intact, Motor intact, Reflexes intact, Cranial nerves intact, Alert, Oriented Psychiatric: Affect appropriate, Mood appropriate, Anxious Interpretation - Radiology Interpretation Radiology Interpretation By: Radiologist Radiology Results: Positive Exam Interpreted: CT Scan Critical Care Note - Critical Care Note Total Time (mins): 0 Course - Course Hematology/Chemistry: 07/08/17 23:50 07/08/17 23:50 Orders, Labs, Meds: Lab Review 07/08/17 07/08/17 07/08/17 23:10 23:50 23:50 WBC 9.28 RBC 4.27 Hgb 12.6 Hct 37.2 MCV 87.1 MCH 29.5 MCHC 33.9 RDW Coeff of [place] 13.4 Plt Count 206 Immature Gran % (Auto) 0.2 Neut % (Auto) 60.4 Lymph % (Auto) 22.5 [place] % (Auto) 13.5 H Eos % (Auto) 3.0 Baso % (Auto) 0.4 Immature Gran # (Auto) 0.0 Neut # (Auto) 5.6 Lymph # (Auto) 2.1 [place] # (Auto) 1.3 Eos # (Auto) 0.3 Baso # (Auto) 0.0 ESR 25 H Sodium 138 Potassium 3.7 Chloride 105 Carbon Dioxide 23 Anion Gap 13.7 BUN 12 Creatinine 0.85 Estimated GFR (MDRD) 73.00 BUN/Creatinine Ratio 14.11 Glucose 113 H Calcium 9.6 Total Bilirubin 0.5 AST 12 L ALT 12 Alkaline Phosphatase 64 Total Protein 7.1 Albumin 3.3 L Globulin 3.8 Albumin/Globulin Ratio 0.87 Amylase 84 Lipase 52 Serum , Qual Urine Color Yellow Urine Clarity Clear Urine pH 6.0 Ur Specific [place] 1.010 Urine Protein Negative Urine Glucose (UA) Negative Urine Ketones Negative Urine Blood Negative Urine Nitrite Negative Urine Bilirubin Negative Urine Urobilinogen 0.2 Ur Leukocyte Esterase Negative 07/08/17 23:50 WBC RBC Hgb Hct MCV MCH MCHC RDW Coeff of Christian Plt Count Immature Gran % (Auto) Neut % (Auto) Lymph % (Auto) [place] % (Auto) Eos % (Auto) Baso % (Auto) Immature Gran # (Auto) Neut # (Auto) Lymph # (Auto) [place] # (Auto) Eos # (Auto) Baso # (Auto) ESR Sodium Potassium Chloride Carbon Dioxide Anion Gap BUN Creatinine Estimated GFR (MDRD) BUN/Creatinine Ratio Glucose Calcium Total Bilirubin AST ALT Alkaline Phosphatase Total Protein Albumin Globulin Albumin/Globulin Ratio Amylase Lipase Serum , Qual Negative Urine Color Urine Clarity Urine pH Ur Specific [place] Urine Protein Urine Glucose (UA) Urine Ketones Urine Blood Urine Nitrite Urine Bilirubin Urine Urobilinogen Ur Leukocyte Esterase Orders Category Date Time Status NPO REMINDER: IMAGING ONCE CARE 07/08/17 23:35 Completed IV [ED IV/MEDIPORT/POWERPORT] .ONCE EMERGENCY 07/08/17 23:34 Active AMYLASE Stat LAB 07/08/17 23:50 Completed CBC W/ AUTO DIFF Stat LAB 07/08/17 23:50 Completed COMPREHENSIVE METABOLIC PANEL Stat LAB 07/08/17 23:50 Completed ESR Stat LAB 07/08/17 23:50 Completed LIPASE Stat LAB 07/08/17 23:50 Completed SERUM Stat LAB 07/08/17 23:50 Completed URINALYSIS C & S IF INDICATED Stat LAB 07/08/17 23:10 Completed 0.9 % Sodium Chloride [Saline Flush] MEDS 07/08/17 23:34 Ordered 1 syr IVF PRN PRN CT ABDOMEN/PELVIS W/WO CONTRAS Stat RADS 07/08/17 23:[address] ABDOMEN/PELVIS WO CONTRAST Stat RADS 07/09/17 00:01 Completed Medications Generic Name Dose Route Start Last Admin Trade Name Freq PRN Reason Stop Dose Admin Sodium Chloride 1 syr 07/08/17 23:34 Saline Flush IVF PRN PRN To flush IV Vital Signs: Temp Pulse Resp BP Pulse Ox 07/08/17 22:56 98.7 F 89 20 131/86 98 Departure - Departure Time of Disposition: 01:38 Disposition: ADMITTED INPATIENT Discharge Problem: Diverticulitis Instructions: Diverticulitis (ED) Condition: Good Pt referred to PMD for follow-up: Yes IPMP verified?: No Allergies/Adverse Reactions: Allergies ciprofloxacin [From Cipro] Adverse Reaction (Verified 07/08/17 23:04) ciprofloxacin HCl [From Cipro] Adverse Reaction (Verified 07/08/17 23:04) sulfamethoxazole [From Bactrim] Adverse Reaction (Verified 07/08/17 23:04) trimethoprim [From Bactrim] Adverse Reaction (Verified 07/08/17 23:04) Home Medications: Ambulatory Orders [place]-3 Fatty Acids/Fish Oil [Fish Oil 1,000 Mg Capsule] 1 each PO DAILY Promethazine HCl 25 mg PO Q8H PRN 06/19/17 Disposition Discussed With: Patient, Family
[2017-07-09] MEDS ORDERED: MORPHINE 2 MG/ML SYRINGE IVP PRN (01:42)
[2017-07-09] MEDS ORDERED: ZOFRAN 4 MG/2 ML IVP PRN (01:42)
[2017-07-09] MEDS ORDERED: FLEXERIL PO PRN (01:43)
[2017-07-09] MEDS ORDERED: ATIVAN IM STA (01:43)
--- NOTE | 2017-07-09 02:25 | ED.PDOC ---
Procedures - IV/Art Line Insertion Location: Rt hand Type of Line: Peripheral IV Invasive Line/IV Catheter Gauge: 22 Number of Attempts: 1 Blood Return Positive: Yes Invasive Line/IV Flushes Without Difficulty: Yes Conscious Sedation - Pre-op Assessment Weight: 270 lb Surgical History: LEAP. ureteral lithotripsy - Medical History Past Medical History: Kidney Stones, Anxiety, Other Other History: several ovarian cysts in past, HPV - Physical Exam Heart Rate/Rhythm: Regular Rate
[2017-07-09] MEDS ORDERED: FLAGYL 500 MG/100 ML 100 ML IV ONE (02:45)
[2017-07-09] MEDS: SODIUM CHLORIDE 1,000 ML IV SCH ×2 (02:50→19:52)
[2017-07-09] MEDS: ZOSYN 3.375 GM 3.375 GM in SODIUM CHLORIDE 50 ML IV SCH ×4 (02:51→22:26)
[2017-07-09] MEDS: FLAGYL 500 MG/100 ML 500 MG in PREMIX 100 ML NS 1 BAG IV SCH ×3 (04:01→20:34)
[2017-07-09] MEDS: ZANTAC PO SCH ×2 (08:23→16:56)
[2017-07-09] MEDS ORDERED: XANAX PO SCH (09:00)
[2017-07-09] MEDS ORDERED: TORADOL IVP PRN (12:57)
[2017-07-09] MEDS: XANAX PO SCH (20:34)
[2017-07-10] MEDS: FLAGYL 500 MG/100 ML 500 MG in PREMIX 100 ML NS 1 BAG IV SCH ×3 (04:31→20:21)
[2017-07-10] MEDS: ZANTAC PO SCH ×2 (05:51→16:52)
[2017-07-10] MEDS: ZOSYN 3.375 GM 3.375 GM in SODIUM CHLORIDE 50 ML IV SCH ×3 (06:26→22:12)
[2017-07-10] MEDS ORDERED: TYLENOL PO PRN (08:17)
[2017-07-10] MEDS: SODIUM CHLORIDE 1,000 ML IV SCH ×2 (16:27→17:35)
[2017-07-10] MEDS: XANAX PO SCH (20:50)
[2017-07-11] MEDS: FLAGYL 500 MG/100 ML 500 MG in PREMIX 100 ML NS 1 BAG IV SCH ×2 (04:07→14:42)
[2017-07-11] MEDS: ZANTAC PO SCH ×2 (05:44→16:30)
[2017-07-11] MEDS: ZOSYN 3.375 GM 3.375 GM in SODIUM CHLORIDE 50 ML IV SCH ×2 (05:44→14:42)
[2017-07-11] MEDS: SODIUM CHLORIDE 1,000 ML IV SCH (11:20)
[2017-07-11] MEDS ORDERED: ZOFRAN TAB PO STA (13:42)
[2017-07-11] MEDS: FLAGYL PO SCH ×2 (14:40→20:33)
[2017-07-11] MEDS: AUGMENTIN 875-125 MG TAB PO SCH ×2 (14:41→20:33)
--- NOTE | 2017-07-11 15:55 | HP ---
DATE OF SERVICE: 07/09/17 CHIEF COMPLAINT: Abdominal pain HISTORY OF PRESENT ILLNESS: This is a 46 year old female who came to the emergency room with abdominal pain and nausea. She was recently admitted with diverticulitis and seen by Dr. Anderson. She was given Augmentin for the outpatient, was doing fine for two to three days then the pain started early in the morning. Came to the emergency room and was found to have acute sigmoid diverticulitis. The patient being admitted to the hospital for the IV antibiotics and recurrent sigmoid diverticulitis. REVIEW OF SYSTEMS: CONSTITUTIONAL: No fever, no chills. HEENT: Normal. ENDOCRINE: No weight gain; no weight loss. CVS: No chest pain. No PND, no orthopnea. No shortness of breath. No PND, no orthopnea. RESPIRATORY: No cough, no congestion. No hemoptysis. GI: No nausea, no vomiting. Abdominal pain. No melena. : No hematuria. No polyuria. MUSCULOSKELETAL: No joint swelling. PSYCHIATRIC: Not anxious. No depression. No suicidal thoughts. No homicidal thoughts. SKIN: Intact, no open lesions. PAST MEDICAL HISTORY: Pneumonia Diverticulitis GERD Osteoarthritis DJD spine Anxiety disorder PAST SURGICAL HISTORY: LEAPS procedure PERSONAL HISTORY: The patient does not smoke or drink FAMILY HISTORY: Diabetes Heart problems MEDICATIONS: Zantac Xanax [place] 3 Cyclobenzaprine Promethazine ALLERGIES: Cipro Sulfa PHYSICAL EXAMINATION: V/S: Blood pressure 131/80, respiratory rate 18, heart rate 90, temperature 98.2 with saturation 98%. GENERAL: The patient is a sick looking lady, laying in the bed not in any distress. HEENT: Atraumatic, normocephalic. No scleral icterus. Pallor positive. Mucosa dry. NECK: Supple. No JVD, no bruit. No lymphadenopathy. No thyromegaly. HEART: S1, S2 normal. No murmur. No cyanosis or clubbing. No ascites. LUNGS: Clear to auscultation. No rales or rhonchi. ABDOMEN: Soft, Left lower quadrant tenderness is present. Bowel sounds are active. No CVA tenderness. No rigidity or guarding. EXTREMITIES: No pedal edema. No cyanosis or clubbing MUSCULOSKELETAL: Normal joints, no swelling. NEUROLOGIC: The patient is awake, alert and oriented. SKIN: Intact; no open lesions. LYMPHATIC: No lymph nodes palpable. LABS: WBC 9.28, hgb 12.6, hct 37.2, plt count 206, sodium 138, potassium 3.7, chloride 105, bicarb 23, BUN 12, creatinine 0.81and glucose 113. ASSESSMENT: 1. Acute left sigmoid diverticulitis, recurrent 2. GERD 3. Anxiety disorder PLAN: 1. Admit patient to the regular floor 2. Clear liquid diet 3. Start patient on the Morphine 4. Flagyl Q 8 hours 5. Zosyn Q 8 hours 6. IV fluids 7. Out of bed to chair activity as tolerated TIME SPENT: MORE THAN 75 minutes MTDD
[2017-07-11] MEDS: XANAX PO SCH (20:33)
[2017-07-12] MEDS: AUGMENTIN 875-125 MG TAB PO SCH (05:37)
[2017-07-12] MEDS: ZANTAC PO SCH (05:38)
[2017-07-12] MEDS: FLAGYL PO SCH (05:38)
--- NOTE | 2017-07-12 09:51 | PN ---
DATE OF SERVICE: 07/10/17 SUBJECTIVE: The patient is admitted with sigmoid diverticulitis. Pain is better, passing gas so we started the patient on the soft diet. REVIEW OF SYSTEMS: CONSTITUTIONAL: No fever, no chills. HEENT: Normal. ENDOCRINE: No weight gain, no weight loss. CVS: No angina symptoms. No CHF symptoms. No palpitations. No atypical chest pain for CAD. No shortness of breath. No PND, no orthopnea. RESPIRATORY: No cough, no hemoptysis. GI: No nausea, no vomiting. No abdominal pain. : No hematuria. No polyuria. MUSCULOSKELETAL: No joint swelling. PSYCHIATRIC: Not anxious. No depression. No suicidal thoughts. No homicidal thoughts. SKIN: Intact. No rash. PHYSICAL EXAMINATION: V/S: Blood pressure 119/69, respiratory rate 18, heart rate 96, temperature 99.9 and saturation 95%. HEENT: Normocephalic, atraumatic. Mucosa dry. Pallor positive. No icterus. NECK: Supple. No JVD, no carotid bruit. No lymphadenopathy. LUNGS: Clear to auscultation. No rales or rhonchi. HEART: S1, S2 normal. No S3. No murmur, gallop or regurgitation. ABDOMEN: Soft, Left lower quadrant discomfort is present. Bowel sounds active. No rigidity. No rebound or guarding. No CVA tenderness. EXTREMITIES: No cyanosis, clubbing or pedal edema. MUSCULOSKELETAL: No joint swelling. NEUROLOGIC: Awake, alert, oriented times three. No focal deficit. LYMPHATIC: No lymph nodes palpable. SKIN: Intact. LABS: WBC 9.10, hgb 11.1, hct 32.5, plt count 172, sodium 137, potassium 3.5, chloride 1074, bicarb 21, BUN 6, creatinine 0.80 and glucose 126. ASSESSMENT: 1. Recurrent sigmoid diverticulitis within one month the patient had second episode 2. Anxiety disorder 3. Anemia PLAN: 1. Continue the Zosyn 2. Flagyl 3. Soft diet 4. Out of bed to chair activity as tolerated 5. The patient being explained about the importance of the treatment with the recurrence of the diverticulitis within one month, complications with the abscess been discussed. The patient verbalized understanding. TIME SPENT: More than 35 minutes MTDD
[2017-07-12 10:21] VITALS: BP 122/75; TEMP 98.1
--- NOTE | 2017-07-12 13:13 | PN ---
DATE OF SERVICE: 07/11/17 SUBJECTIVE: The patient was admitted with sigmoid diverticulitis. Pain is better. She started the soft diet today. REVIEW OF SYSTEMS: CONSTITUTIONAL: No fever, no chills. HEENT: Normal. ENDOCRINE: No weight gain, no weight loss. CVS: No angina symptoms. No CHF symptoms. No palpitations. No atypical chest pain for CAD. No shortness of breath. No PND, no orthopnea. RESPIRATORY: No cough, no hemoptysis. GI: No nausea, no vomiting. No abdominal pain. : No hematuria. No polyuria. MUSCULOSKELETAL: No joint swelling. PSYCHIATRIC: Not anxious. No depression. No suicidal thoughts. No homicidal thoughts. SKIN: Intact. No rash. PHYSICAL EXAMINATION: V/S: Blood pressure 116/79, respiratory rate 20, heart rate 78, temperature 98.1 , saturation 97 HEENT: Normocephalic, atraumatic. Mucosa dry. Pallor positive. No icterus. NECK: Supple. No JVD, no carotid bruit. No lymphadenopathy. LUNGS: Decreased and clear to auscultation. No rales or rhonchi. HEART: S1, S2 normal. No S3. No murmur, gallop or regurgitation. ABDOMEN: Soft, mild discomfort. Bowel sounds active. No rigidity. No rebound or guarding. No CVA tenderness. EXTREMITIES: No cyanosis, clubbing or pedal edema. MUSCULOSKELETAL: No joint swelling. NEUROLOGIC: Awake, alert, oriented times three. No focal deficit. LYMPHATIC: No lymph nodes palpable. SKIN: Intact. LABS: WBC 9.10, hgb 11.1, hct 32.5, plt count 172, sodium 137, potassium 3.5, chloride 107, bicarb 21, BUN 6, creatinine 0.80 and glucose 126. ASSESSMENT: 1. Acute sigmoid diverticulitis 2. Anxiety 3. Depression PLAN: 1. Continue the Azactam and Flagyl 2. Soft diet 3. Out of bed to chair activity as tolerated 4. No DVT prophylaxis as patient has been walking good. TIME SPENT: More than 35 minutes MTDD
--- NOTE | 2017-08-03 07:59 | DS ---
DATE OF SERVICE: 07/12/17 FINAL DIAGNOSIS: 1. ACUTE SIGMOID DIVERTICULITIS, RECURRENT INFECTION 2. ANEMIA 3. ANXIETY DISORDER 4. 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 HISTORY OF PNEUMONIA DISCHARGE INSTRUCTIONS: Discharge the patient home. Followup in the [facility] within 5 days. MEDICATIONS AT DISCHARGE: Xanax Cyclobenzaprine Zantac [place] 3 Promethazine NEW PRESCRIPTIONS: Flagyl 500 mg q.8hr Augmentin 875 q.8hr Please take Probiotics DIET INSTRUCTIONS: Soft diet for 3 more days. No seeds or nuts. ACTIVITY: As much as tolerated. DISEASE SPECIFIC EDUCATION: Diverticulitis with risk of abscess, colitis and colostomy complications have been discussed and verbalized understanding. 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 She was recently admitted and discharged from the hospital for the acute sigmoid diverticulitis. She went home, as feeling fine, started having abdominal pain, left lower quadrant and left-sided pain. She came to the emergency room, was seen by Dr. Anderson in the emergency room. CT scan of abdomen and pelvis showed acute sigmoid diverticulitis. As patient had failed outpatient treatment, the patient was admitted to the hospital, started on antibiotics and IV fluids. Morphine and Toradol was given for pain. Zosyn and Flagyl started. Continued her home medications. She was kept NPO for 1 to 1 1/2 day. Gradually the pain was getting better then started clear liquids to see if she could tolerate. Up and about walking. She was able to pass out and having bowel movements. The patient had a problem with IV access. Antibiotic Augmentin was started. The patient did not have any complications. White count was normal. Pain subsided. She was up and about walking, did not have any problems. She was able to have regular bowel movement. Hemoglobin was steady. At that time, the patient was discharged home. Explained clearly about diverticulitis and diverticulitis diet, verbalized understanding. Complications discussed. To stay home a couple of days and rest. Continue soft diet. Followup in the office next week. TIME SPENT: MORE THAN 65 MINUTES MTDD
== END 2017-07-12 11:00 | disposition home or self-care (01) | DRG 392 ==
LOC: ED 22:55 → MEDSURG A 07-09 01:43
PROVIDERS: ADMIT Emergency Medicine; ATTEND Emergency Medicine
DX: K57.32 Diverticulitis of large intestine without perforation or abscess without bleeding (principal); D64.9 Anemia, unspecified; F41.9 Anxiety disorder, unspecified; F32.9 Major depressive disorder, single episode, unspecified; M47.9 Spondylosis, unspecified; Z86.19 Personal history of other infectious and parasitic diseases; Z87.01 Personal history of pneumonia (recurrent); Z79.899 Other long term (current) drug therapy
CPT/HCPCS: 36415; 80053; 81001; 82150; 83690; 84703; 85025; 85651; 96372; 97802; 99284

== ENCOUNTER 2017-10-20 10:52 | Outpatient (CLI) | END 2017-10-20 10:53 | disposition home or self-care (01) | LOC: RHC-LAB 10:52 | PROVIDERS: ATTEND Emergency Medicine | DX: D50.8 Other iron deficiency anemias (principal); E75.6 Lipid storage disorder, unspecified; K21.9 Gastro-esophageal reflux disease without esophagitis; E66.9 Obesity, unspecified; E78.1 Pure hyperglyceridemia; M25.50 Pain in unspecified joint | CPT/HCPCS: 36415; 80053; 80061; 84443; 85025; 85651; 86038; 86430 ==

== ENCOUNTER 2018-05-19 14:55 | Outpatient (CLI) | END 2018-05-19 14:56 | disposition home or self-care (01) | LOC: RHC-LAB 14:55 | PROVIDERS: ATTEND Nurse Practitioner Family | DX: R50.9 Fever, unspecified (principal) | CPT/HCPCS: 87502; 87651 ==

== ENCOUNTER 2018-10-16 11:35 | Outpatient (CLI) | END 2018-10-16 11:36 | disposition home or self-care (01) | LOC: RHC-LAB 11:35 | PROVIDERS: ATTEND Nurse Practitioner Family | DX: Z00.00 Encounter for general adult medical examination without abnormal findings (principal); R07.89 Other chest pain | CPT/HCPCS: 36415; 80053; 80061; 84443; 85025; 93005; 93010 ==

== ENCOUNTER 2018-10-16 16:37 | Outpatient (CLI) | END 2018-10-16 16:38 | disposition home or self-care (01) | LOC: CAR 16:37 | PROVIDERS: ATTEND Nurse Practitioner Family | DX: R07.89 Other chest pain (principal) | CPT/HCPCS: 93005; 93010 ==